=== PATIENT | female | born 1985 | race African-American/Black ===

== ENCOUNTER 2022-03-14 08:15 | Emergency (ER) | payer MEDICAID, SELFPAY ==
--- NOTE | ~2022-03-14 | US_ITS ---
US breast RT complete DATE: 03/14/2022 10:05 INDICATION: Severe nipple pain TECHNIQUE: Real-time imaging of the right breast, including all 4 quadrants and subareolar area COMPARISON: None FINDINGS: There is an irregular up to 7.7 mm AP dimension 2 cm with complicated cystic lesion in the subareolar area with through transmission and posterior enhancement. There is prominent vascularity s urrounding this area. The findings suggest abscess. Less likely considerations include hematoma or ma lignant lesion. Approximately 9 and 11 mm lymph nodes are identified in the axillary area, with uniform echogenicity and thickness of the cortices. IMPRESSION: Irregular approximately 7.7 x 20 mm complicated subareolar fluid collection with through transmission and prominent surrounding vascularity, most suggestive of subareolar abscess Reviewed, dictated and finalized at [facility]. Reviewed, dictated and finalized at [facility]. IMPRESSION: Irregular approximately 7.7 x 20 mm complicated subareolar fluid co llection with through transmission and prominent surrounding vascularity, most suggestive of subareolar abscess
[2022-03-14 08:25] VITALS: BP 122/82; PULSE 81; RESP 18; TEMP 36.7; O2SAT 98
--- NOTE | 2022-03-14 09:20 | ED.GENADULT ---
HPI - General Adult General Chief complaint: Unspecified <MAYANK Red Last Filed: 03/14/22 10:44> Stated complaint: R nipple pain/swelling <MAYANK Red Last Filed: 03/14/22 10:44> Time Seen by Provider: 03/14/22 09:09 <MAYANK Red Last Filed: 03/14/22 10:44> Source: patient <MAYANK Red Last Filed: 03/14/22 10:44> Mode of arrival: ambulatory <MAYANK Red Last Filed: 03/14/22 10:44> Limitations: no limitations <MAYANK Red Last Filed: 03/14/22 10:44> History of Present Illness HPI narrative: This is a 36-year-old female that presents to the emergency department for right breast pain noted over the last couple of days. Reports she noted a mass under the nipple about a week ago. Reports over the last couple days she has had pain in the nipple. She has not been taking anything for pain as she has many allergies. Denies fever, erythema, or nipple discharge. <MAYANK Red Last Filed: 03/14/22 10:44> Related Data Home medications: Home Medications Medication Instructions Recorded Confirmed amitriptyline 12.5 mg PO HS 03/14/22 03/14/22 <MAYANK Red Last Filed: 03/14/22 10:44> Allergies/adverse reactions: Allergies Allergy/AdvReac Type Severity Reaction Status Date / Time NSAIDS (Non-Steroidal Allergy Severe Siezure Verified 03/14/22 11:38 Anti-Inflamma acetaminophen Allergy Unknown Verified 03/14/22 11:38 hydroxyzine Allergy Unknown Verified 03/14/22 11:38 ANTIHISTAMINES Allergy Severe Siezure Uncoded 12/30/15 16:23 altaryl Allergy Unknown Uncoded 03/14/22 08:30 cetrizine Allergy Unknown Uncoded 03/14/22 08:30 diphedryl Allergy Unknown Uncoded 03/14/22 08:30 <MAYANK Red Last Filed: 03/14/22 10:44> Review of Systems Review of Systems: CONSTITUTIONAL: Denies fever BREAST: Reports lump. Denies nipple discharge <Maggie Ray PA-C - Last Filed: 03/14/22 10:44> All systems reviewed & are unremarkable except as noted in HPI and below <Maggie Ray PA-C - Last Filed: 03/14/22 10:44> PMFSH Past Medical History Medical History: Medical History History of arqkosz-2-nklapcnlxkp deficiency (G6PD) History of lupus <Maggie Ray PA-C - Last Filed: 03/14/22 10:44> Social History Social History: Social History Smoking status: Never smoker <Maggie Ray PA-C - Last Filed: 03/14/22 10:44> Exam Narrative: GENERAL: Well-appearing, well-nourished, and in no acute distress. HEAD: Normocephalic, atraumatic. EYES: EOMI. EXTREMITIES: Normal range of motion. No edema. SKIN: Warm, dry, no rash. NEURO: No focal deficits. Alert and oriented x3. PSYCH: Normal mood and affect BREAST: Some nipple distortion noted on the right. Small mass present under the right nipple that is tender to palpation. No erythema or warmth <Maggie Ray PA-C - Last Filed: 03/14/22 10:44> Course SOLDER TECHNICIAN/PA Physician Supervision For this patient encounter, I reviewed the SOLDER TECHNICIAN or PA documentation, treatment plan, and medical decision making <Jonathan Barcenas MD - Last Filed: 03/14/22 13:49> Vital Signs Vital signs: Vital Signs Temperature 98.1 F 03/14/22 08:25 Pulse Rate 81 03/14/22 08:25 Respiratory Rate 18 03/14/22 08:25 Blood Pressure 122/82 03/14/22 08:25 Pulse Oximetry 98 03/14/22 08:25 Temperature 98.1 F 03/14/22 08:25 Pulse Rate 71 03/14/22 10:47 Respiratory Rate 15 03/14/22 10:47 Blood Pressure 127/84 03/14/22 10:47 Pulse Oximetry 99 03/14/22 10:47 <Maggie Ray PA-C - Last Filed: 03/14/22 10:44> Vital Signs Temperature 98.1 F 03/14/22 08:25 Pulse Rate 81 03/14/22 08:25 Respiratory Rate 18 03/14/22 08:25 Blood Pressure 122/82 03/14/22 08:25 Pulse Oximetr
[2022-03-14] MEDS: traMADol HCL (*CRX) 50 MG TABLET PO (09:31)
[2022-03-14] MEDS: ONDANSETRON HCL ODT 4 MG TABLET PO (10:42)
[2022-03-14 10:47] VITALS: BP 127/84; PULSE 71; RESP 15; O2SAT 99
== END 2022-03-14 10:49 | disposition home or self-care (01) ==
PROVIDERS: Emergency Provider Emergency Medicine; PCP Internal Medicine
DX: N61.1 Abscess of the breast and nipple (principal); D75.A Glucose-6-phosphate dehydrogenase (G6PD) deficiency without anemia
CPT/HCPCS: 76641; 81025; 99284; A9270

== ENCOUNTER 2022-03-15 18:04 | Emergency (ER) | payer MEDICAID, SELFPAY ==
[2022-03-15 18:10] VITALS: BP 155/99; PULSE 77; RESP 16; TEMP 36.8; O2SAT 100
--- NOTE | 2022-03-15 18:25 | ED.GENADULT ---
HPI - General Adult General Chief complaint: Unspecified Stated complaint: lupus flair Time Seen by Provider: 03/15/22 18:15 Source: patient History of Present Illness HPI narrative: Patient presents with diffuse body aches. She was seen yesterday in the ER and and plastics. She was diagnosed with a breast abscess started on Bactrim after taking her second dose of Bactrim she reports diffuse pain related she has been in her hip chest pain or abdomen she has pain in her head. She has her symptoms are very severe everything makes them worse. She would like her symptoms are related to her recent antibiotics and are causing a lupus flare. No nausea vomiting or diarrhea Related Data Home Medications Medication Instructions Recorded Confirmed amitriptyline 12.5 mg PO HS 03/14/22 03/14/22 Allergies Allergy/AdvReac Type Severity Reaction Status Date / Time NSAIDS (Non-Steroidal Allergy Severe Siezure Verified 03/15/22 18:14 Anti-Inflamma acetaminophen Allergy Unknown Verified 03/15/22 18:14 hydroxyzine Allergy Unknown Verified 03/15/22 18:14 Sulfa (Sulfonamide AdvReac Other Verified 03/15/22 18:14 Antibiotics) ANTIHISTAMINES Allergy Severe Siezure Uncoded 03/15/22 18:14 altaryl Allergy Unknown Uncoded 03/15/22 18:14 cetrizine Allergy Unknown Uncoded 03/15/22 18:14 diphedryl Allergy Unknown Uncoded 03/15/22 18:14 Review of Systems Review of Systems: CONSTITUTIONAL: Denies fever, chills, or sweats. EYES: Denies visual changes, redness, or discharge. ENT: Denies rhinorrhea, congestion, sore throat, or otalgia. CARDIOVASCULAR: Denies chest pain, palpitations, or edema. RESPIRATORY: Denies cough or dyspnea. GASTROINTESTINAL: Reports abdominal pain GENITOURINARY: Denies dysuria or hematuria. SKIN: Denies rash or itching. MUSCULOSKELETAL: Reports diffuse myalgias and joint pain NEUROLOGIC: Denies numbness, dizziness, or weakness. PSYCHIATRIC: Denies anxiety or depression. All systems reviewed & are unremarkable except as noted in HPI and below PMFSH Past Medical History Medical History History of bzswgde-9-jeecqjucnjl deficiency (G6PD) History of lupus Social History Social History Smoking status: Never smoker Exam Narrative: GENERAL: Well-appearing, well-nourished, and in mild acute distress due to pain HEAD: Normocephalic, atraumatic. EYES: PERRLA and EOMI. ENT: Nares clear, no rhinorrhea or epistaxis. Mucous membranes moist. NECK: Supple. No masses. No JVD CHEST: Clear to auscultation. No respiratory distress. No wheezes rales or rhonchi HEART: Regular rate and rhythm. No murmur heard. Normal peripheral pulses. ABDOMEN: Soft, nontender, nondistended, normal active bowel sounds. EXTREMITIES: Normal range of motion. No edema. SKIN: Warm, dry, no rash. NEURO: No focal deficits. Alert and oriented x3. PSYCH: Normal mood and affect. Course Reevaluation(s) Reevaluation #1: Patient reports feeling improved results and plan reviewed with patient. Patient is comfortable outpatient plan. Case cussed with Dr. Caldwell who is comfortable having the patient call in the morning she still feeling unwell. We will set up the patient's antibiotics. Patient is tolerated amoxicillin in the past. Date: 03/15/22 Time: 19:26 Vital Signs Vital signs: Vital Signs Temperature 36.8 C 03/15/22 18:10 Pulse Rate 77 03/15/22 18:10 Respiratory Rate 16 03/15/22 18:10 Blood Pressure 155/99 H 03/15/22 18:10 Pulse Oximetry 100 03/15/22 18:10 Temperature 36.9 C 03/15/22 19:35 Pulse Rate 88 03/15/22 19:35 Respiratory Rate 14 03/15/22 19:35 Blood Pressure 124/74 03/15/22 19:35 Pulse Oximetry 97 03/15/22 19:35 Medical Decision Making MDM Narrative Medical decision making narrative: H&P as above, vss, pt looks clinically well, exam reassuring, labs clinically unremarkable, laney
[2022-03-15] MEDS: SODIUM CHLORIDE 0.9% IV 1,000 ML 999 ML IV CONT (18:35)
[2022-03-15] MEDS: MORPHINE SULFATE (*CRX) 4 MG/ML INJ IV PUSH (18:35)
[2022-03-15 18:39] LABS: Basophils Absolute Auto 0.1 K/mm3 (0.0-0.1); Basophils Percent Auto 0.3 % (0.2-1.2); Eosinophils Absolute Auto 0.1 K/mm3 (0-0.3); Eosinophils Percent Auto 0.6 % (0-4.4); Hematocrit 42.8 % (37.0-47.0); Immature Granulocyte Absolute 0.05 K/mm3 (0.00-0.031); Immature Granulocyte Percent A 0.3 % (0-0.5); Lymphocytes Absolute Auto 3.15 K/mm3 (0.9-3.2); Lymphocytes Percent Auto 21.4 % (18.3-44.2); Mean Corpuscular HGB Conc 32.7 g/dl (32-36); Mean Corpuscular Hemoglobin 32.4 pg (26-34); Mean Corpuscular Volume 99.1 fl (80-100); Mean Platelet Volume 12.6 fl (7.4-10.4); Monocytes Absolute Auto 0.9 K/mm3 (0.1-0.6); Monocytes Percent Auto 6.3 % (2.6-8.5); Neutrophils Absolute Auto 10.4 K/mm3 (1.3-6.7); Neutrophils Percent Auto 71.1 % (45.5-73.1); Platelet Count Result 166 k/mm3 (150-375); Red Blood Count 4.32 M/mm3 (4.2-5.4); Red Cell Distribution Width 11.7 % (11.5-14.5); White Blood Count 14.7 K/mm3 (4.5-10.0)
[2022-03-15] MEDS: PROCHLORPERAZINE EDISYLATE 10 MG/2 ML VIAL IV PUSH (18:44)
[2022-03-15 18:51] LABS: Alanine Aminotransferase 29 U/L (4-35); Albumin Level 4.6 g/dL (3.5-5.1); Alkaline Phosphatase 84 U/L (38-126); Anion Gap 6 mmol/L (8-16); Aspartate Amino Transferase 29 U/L (14-36); Bilirubin,Total 0.5 mg/dL (0.2-1.3); Blood Urea Nitrogen 10 mg/dL (7-17); Calcium 9.3 mg/dL (8.4-10.2); Carbon Dioxide 24 mmol/L (22-30); Chloride 107 mmol/L (98-107); Estimated CRCL calculation 70 ml/min; Estimated Glomerular Filt Rate > 60; Glucose 120 mg/dL (65-110); Lipase 41 U/L (23-300); Sodium 137 mmol/L (137-145)
[2022-03-15 18:58] LABS: Appearance Urine Clear (Clear); Bilirubin Urine 1+ (Negative); Blood Urine 1+ (Negative); Color Urine Yellow (Yellow); Glucose Urine UA Negative (Negative); Ketones Urine Trace mg/dL (Negative); Leukocyte Esterase Ur Negative LEU/UL (Negative); Nitrate Urine Negative (Negative); Protein Urine Negative (Negative); Specific Grav Ur 1.025 (1.001-1.035)
[2022-03-15 19:05] LABS: Add Urine Microscopic? YES; Mucus Urine Rare /lpf; Squamous Epithelial Cell Urine Many /hpf (Few)
[2022-03-15 19:35] VITALS: BP 124/74; PULSE 88; RESP 14; TEMP 36.9; O2SAT 97
== END 2022-03-15 19:35 | disposition home or self-care (01) ==
PROVIDERS: Emergency Provider Emergency Medicine; PCP Internal Medicine
DX: M25.559 Pain in unspecified hip (principal); R07.9 Chest pain, unspecified; M79.10 Myalgia, unspecified site; R10.9 Unspecified abdominal pain; T36.8X5A Adverse effect of other systemic antibiotics, initial encounter; N61.1 Abscess of the breast and nipple; D75.A Glucose-6-phosphate dehydrogenase (G6PD) deficiency without anemia
CPT/HCPCS: 36415; 80053; 81001; 81025; 83690; 85025; 96374; 96375; 99284; J0780; J2270; J7030

== ENCOUNTER 2022-06-15 03:41 | Emergency (ER) | payer BC, SELFPAY ==
[2022-06-15 03:44] VITALS: BP 128/74; PULSE 90; RESP 16; TEMP 36.3; O2SAT 99
--- NOTE | 2022-06-15 03:44 | ECG_ITS ---
Measurements Intervals [place] Rate: 95 P: 21 WV: 163 QRS: 11 QRSD: 93 T: -14 QT: 343 QTc: 432 Interpretive Statements SINUS RHYTHM POSSIBLE RIGHT VENTRICULAR CONDUCTION DELAY LOW-VOLTAGE QRS IN PRECORDIAL LEADS NONSPECIFIC T-WAVE ABNORMALITY BORDERLINE ECG NO PREVIOUS ECG AVAILABLE FOR COMPARISON Electronically Signed On 06-15-2022 12:37:23 CDT by Kev Sharma M.D.
[2022-06-15 04:10] LABS: Basophils Absolute Auto 0.1 K/mm3 (0.0-0.1); Basophils Percent Auto 0.4 % (0.2-1.2); Eosinophils Absolute Auto 0.2 K/mm3 (0-0.3); Eosinophils Percent Auto 1.5 % (0-4.4); Hematocrit 37.9 % (37.0-47.0); Hemoglobin 12.5 g/dL (12.0-15.0); Immature Granulocyte Absolute 0.05 K/mm3 (0.00-0.031); Immature Granulocyte Percent A 0.4 % (0-0.5); Lymphocytes Absolute Auto 5.36 K/mm3 (0.9-3.2); Lymphocytes Percent Auto 37.6 % (18.3-44.2); Mean Corpuscular Hemoglobin 31.3 pg (26-34); Mean Platelet Volume 11.8 fl (7.4-10.4); Monocytes Percent Auto 7.2 % (2.6-8.5); Neutrophils Absolute Auto 7.6 K/mm3 (1.3-6.7); Neutrophils Percent Auto 52.9 % (45.5-73.1); Platelet Count Result 173 k/mm3 (150-375); Red Blood Count 3.99 M/mm3 (4.2-5.4); Red Cell Distribution Width 11.9 % (11.5-14.5); White Blood Count 14.3 K/mm3 (4.5-10.0)
[2022-06-15 04:20] LABS: Alanine Aminotransferase 21 U/L (6-35); Albumin Level 4.3 g/dL (3.5-5.1); Alkaline Phosphatase 79 U/L (38-126); Anion Gap 11 mmol/L (8-16); Aspartate Amino Transferase 23 U/L (14-36); Bilirubin,Total 0.8 mg/dL (0.2-1.3); Blood Urea Nitrogen 8 mg/dL (7-17); Calcium 9.1 mg/dL (8.4-10.2); Carbon Dioxide 19 mmol/L (22-30); Chloride 104 mmol/L (98-107); Estimated CRCL calculation 89 ml/min; Estimated Glomerular Filt Rate > 60; Glucose 128 mg/dL (65-110); Potassium 3.2 mmol/L (3.4-5.0); Sodium 134 mmol/L (137-145)
[2022-06-15 04:53] VITALS: BP 119/69; PULSE 75
[2022-06-15 04:56] VITALS: BP 120/86; PULSE 62
[2022-06-15 04:57] VITALS: BP 117/86; PULSE 72
[2022-06-15] MEDS: SODIUM CHLORIDE 0.9% IV 1,000 ML 999 ML IV CONT (05:21)
[2022-06-15 05:27] LABS: Appearance Urine Clear (Clear); Bilirubin Urine 1+ (Negative); Blood Urine Negative (Negative); Color Urine Yellow (Yellow); Glucose Urine UA Negative (Negative); Ketones Urine 1+ mg/dL (Negative); Leukocyte Esterase Ur Negative LEU/UL (Negative); Nitrate Urine Negative (Negative); Protein Urine Trace mg/dL (Negative); Specific Grav Ur >= 1.030 (1.001-1.035)
[2022-06-15 05:36] LABS: Mucus Urine Moderate /lpf; RBC Urine 0-2 /hpf (0-2); Squamous Epithelial Cell Urine Few /hpf (Few); WBC Urine 0-3 /hpf
[2022-06-15 06:00] LABS: Add Urine Microscopic? YES
--- NOTE | 2022-06-15 07:07 | ED.GENADULT ---
HPI - General Adult General Chief complaint: Syncope Stated complaint: SYNCOPE Time Seen by Provider: 06/15/22 04:27 History of Present Illness HPI narrative: Patient is a 36-year-old female who presents ER after having a syncopal episode. She was in the bathroom speaking with her when she got hot and flushed and her vision blurred and she passed out. She struck her head on the ground. Loss consciousness was only brief according to . Patient reports she could be . Reports she has had poor appetite recently. She reports she vomits daily for the last 3 weeks. LMP 4 weeks ago. No fevers or chills or sweats. No chest pain or chest pressure. She felt no racing the heart. No urinary frequency urgency or dysuria. Related Data Home Medications Medication Instructions Recorded Confirmed amitriptyline 25 mg tablet 12.5 mg PO HS 03/14/22 03/14/22 Allergies Allergy/AdvReac Type Severity Reaction Status Date / Time NSAIDS (Non-Steroidal Allergy Severe Siezure Verified 03/15/22 18:14 Anti-Inflamma acetaminophen Allergy Unknown Verified 03/15/22 18:14 hydroxyzine Allergy Unknown Verified 03/15/22 18:14 Sulfa (Sulfonamide AdvReac Other Verified 03/15/22 18:14 Antibiotics) ANTIHISTAMINES Allergy Severe Siezure Uncoded 03/15/22 18:14 altaryl Allergy Unknown Uncoded 03/15/22 18:14 cetrizine Allergy Unknown Uncoded 03/15/22 18:14 diphedryl Allergy Unknown Uncoded 03/15/22 18:14 Review of Systems Review of Systems: All systems reviewed & are unremarkable except as noted in HPI and below Constitutional: Constitutional: Denies chills and Denies fever(s) ENT: Denies nasal congestion and Denies sore throat Cardiovascular: Cardiovascular: Denies chest pain, Denies rapid heart rate and Denies radiating jaw, neck or arm pain Respiratory: Respiratory: Denies cough and Denies dyspnea Gastrointestinal: Gastrointestinal: Denies abdominal pain, Denies nausea and Denies vomiting Neurologic: Reports syncope, Denies headache(s), Denies focal weakness and Denies numbness PMFSH Past Medical History Medical History (Updated 06/15/22 @ 07:13 by Yann Mayen MD) Ectopic History of rkoshkx-6-sfnsrvtwgoc deficiency (G6PD) History of lupus Surgical History Surgical History (Updated 06/15/22 @ 07:10 by Yann Mayen MD) H/O pelvic surgery Ectopic removal Social History Social History Smoking status: Never smoker Exam Narrative: GENERAL: Well-appearing, well-nourished, and in no acute distress. HEAD: Normocephalic, atraumatic. EYES: PERRL and EOMI. CHEST: Clear to auscultation. No respiratory distress. HEART: Regular rate and rhythm. Normal peripheral pulses. ABDOMEN: Soft, nontender, nondistended. EXTREMITIES: Normal range of motion. No edema. SKIN: Warm, dry, no rash. NEURO: Alert and oriented x3. PSYCH: Normal mood and affect. Course Course Emergency Course: Patient resting comfortably. Hydrated. Given some pain medication for facial discomfort from striking her head. Patient given reassurance. Discharge home. Vital Signs Vital signs: Vital Signs Temperature 97.4 F L 06/15/22 03:44 Pulse Rate 90 06/15/22 03:44 Respiratory Rate 16 06/15/22 03:44 Blood Pressure 128/74 06/15/22 03:44 Pulse Oximetry 99 06/15/22 03:44 Oxygen Delivery Room Air 06/15/22 03:44 Temperature 97.4 F L 06/15/22 03:44 Pulse Rate 72 06/15/22 04:57 Respiratory Rate 16 06/15/22 03:44 Blood Pressure 117/86 06/15/22 04:57 Pulse Oximetry 99 06/15/22 03:44 Oxygen Delivery Room Air 06/15/22 03:44 Medical Decision Making Vital Signs Vital Signs: Vital Signs Temperature 97.4 F L 06/15/22 03:44 Pulse Rate 90 06/15/22 03:44 Respiratory Rate 16 06/15/22 03:44 Blood Pressure 128/74 06/15/22 03:44 Pulse Oximetry 99 06/15/22 03:44 Oxygen Delivery Room Air
[2022-06-15 07:25] VITALS: BP 108/64; PULSE 78; RESP 18; O2SAT 99
== END 2022-06-15 07:27 | disposition home or self-care (01) ==
PROVIDERS: Emergency Provider Emergency Medicine; PCP Internal Medicine
DX: R55 Syncope and collapse (principal)
CPT/HCPCS: 36415; 80053; 81001; 81025; 85025; 93005; 99284; J7030

== ENCOUNTER 2022-10-10 12:34 | Emergency (ER) | payer BC, SELFPAY ==
--- NOTE | 2022-10-10 12:42 | PC.NURSE ---
PT DECIDED AGAINST STAYING D/T WAIT TIME
== END 2022-10-10 12:56 | disposition left against medical advice (07) ==
LOC: ANHED 12:53
PROVIDERS: PCP Internal Medicine
DX: Z53.21 Procedure and treatment not carried out due to patient leaving prior to being seen by health care provider (principal)
CPT/HCPCS: 99199

== ENCOUNTER 2024-03-08 06:59 | Emergency (ER) | payer BC, SELFPAY ==
--- NOTE | ~2024-03-08 | CT_ITS ---
EXAMINATION: CT abdomen pelvis w con DATE: 03/08/2024 09:11 INDICATION: Possible pyelonephritis. History of bowel infection. TECHNIQUE: Computed tomography (CT) of the abdomen and pelvis was performed with 100 cc Omnipaque 350 intravenous contrast. The dose-length product was 248.02 mGy-cm. Automated exposure control and iter ative reconstruction technique were employed. COMPARISON: CT dated 09/21/2017. FINDINGS: Lung bases are unremarkable. Heart size normal. No significant pleural or pericardial effus ion. The liver, spleen, pancreas, adrenal glands and kidneys are unremarkable. Gallbladder is present . No free air or free fluid. No significant vascular abnormality. No abnormal pelvic masses or fluid collections. 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 No acute osseous abnormality. IMPRESSION: 1. No acute abdominal abnormality. Reviewed, dictated and finalized at [facility].
[2024-03-08 07:19] VITALS: BP 105/87; PULSE 74; RESP 19; TEMP 36.6; O2SAT 98
[2024-03-08 07:36] LABS: Basophils Percent Auto 0.3 % (0.2-1.2); Eosinophils Percent Auto 0.3 % (0-4.4); Hematocrit 43.3 % (37.0-47.0); Hemoglobin 13.8 g/dL (12.0-15.0); Immature Granulocyte Absolute 0.03 K/mm3 (0.00-0.031); Immature Granulocyte Percent A 0.2 % (0-0.5); Lymphocytes Absolute Auto 2.25 K/mm3 (0.9-3.2); Lymphocytes Percent Auto 15.5 % (18.3-44.2); Mean Corpuscular HGB Conc 31.9 g/dl (32-36); Mean Corpuscular Hemoglobin 30.7 pg (26-34); Mean Corpuscular Volume 96.4 fl (80-100); Mean Platelet Volume 12.1 fl (7.4-10.4); Monocytes Absolute Auto 0.7 K/mm3 (0.1-0.6); Monocytes Percent Auto 4.6 % (2.6-8.5); Neutrophils Absolute Auto 11.5 K/mm3 (1.3-6.7); Neutrophils Percent Auto 79.1 % (45.5-73.1); Platelet Count Result 187 k/mm3 (150-375); Red Blood Count 4.49 M/mm3 (4.2-5.4); Red Cell Distribution Width 12.5 % (11.5-14.5); White Blood Count 14.6 K/mm3 (4.5-10.0)
[2024-03-08] MEDS: ONDANSETRON INJ 4 MG/2 ML VIAL IV PUSH (07:38)
[2024-03-08] MEDS: SODIUM CHLORIDE 0.9% IV 1,000 ML 999 ML IV CONT (07:38)
[2024-03-08 07:48] LABS: Alanine Aminotransferase 22 U/L (6-35); Albumin Level 4.9 g/dL (3.5-5.1); Alkaline Phosphatase 74 U/L (38-126); Anion Gap 7 mmol/L (4-12); Aspartate Amino Transferase 21 U/L (14-36); Bilirubin,Total 0.9 mg/dL (0.2-1.3); Blood Urea Nitrogen 7 mg/dL (7-17); Calcium 9.7 mg/dL (8.4-10.2); Carbon Dioxide 24 mmol/L (22-30); Chloride 108 mmol/L (98-107); Estimated CRCL calculation 87 ml/min; Estimated Glomerular Filt Rate > 60; Glucose 137 mg/dL (65-110); Lipase 30 U/L (23-300); Potassium 3.5 mmol/L (3.4-5.0); Sodium 139 mmol/L (137-145)
[2024-03-08 07:48] LABS: Lactic Acid Reflex 1.5 mmol/L (0.7-2.0)
[2024-03-08 07:57] LABS: Appearance Urine Cloudy (Clear); Bacteria Urine 3+ /hpf; Bilirubin Urine Negative (Negative); Blood Urine 2+ (Negative); Color Urine Yellow (Yellow); Glucose Urine UA Negative (Negative); Ketones Urine Trace mg/dL (Negative); Leukocyte Esterase Ur 1+ LEU/UL (Negative); Mucus Urine Present /lpf; Nitrate Urine Negative (Negative); Protein Urine Negative (Negative); Specific Grav Ur 1.023 (1.001-1.035); Squamous Epithelial Cell Urine Many /hpf (Few); WBC Urine 0-5 /hpf (0-3); pH Urine 5.5 (5.0-9.0)
[2024-03-08 07:58] LABS: Add Urine Microscopic? YES
--- NOTE | 2024-03-08 08:30 | ED.ABDPAIN ---
HPI - Abdominal Pain General Chief Complaint: Abdominal Pain Stated Complaint: abd pain Time Seen by Provider: 03/08/24 07:32 Source: patient Mode of arrival: ambulatory Limitations: no limitations History of Present Illness HPI narrative: patient presents with acute onset abdominal pain, nausea, and vomiting starting approximately 4:00 a.m. this morning. She has had several episodes of nonbloody but questionably bilious emesis. She is also having bilateral flank pain at the left greater than right and pain in her RLQ and LLQ. she says it is 10/10 in severity. No fever. Denies diarrhea. She has been having dysuria, urgency, and frequency but denies hematuria. She has a history of E coli and salmonella which required 6 months of hospitalization in 2013. her insurance follow up specialist is Dr Broussard. Last colonoscopy 4 years ago. Hx lupus. Near daily marijuana use to help her sleep. Related Data Home Medications Medication Instructions Recorded Confirmed amitriptyline 25 mg tablet 12.5 mg PO HS 03/14/22 03/14/22 Allergies Allergy/AdvReac Type Severity Reaction Status Date / Time NSAIDS (Non-Steroidal Allergy Severe Siezure Verified 03/08/24 07:22 Anti-Inflamma cetirizine Allergy Unknown Unknown Verified 03/08/24 07:37 acetaminophen Allergy Unknown Verified 03/08/24 07:22 hydroxyzine Allergy Unknown Verified 03/08/24 07:22 Sulfa (Sulfonamide AdvReac Other Verified 03/08/24 07:22 Antibiotics) ANTIHISTAMINES Allergy Severe Siezure Uncoded 03/08/24 07:22 altaryl Allergy Unknown Uncoded 03/08/24 07:22 diphedryl Allergy Unknown Uncoded 03/08/24 07:22 [facility] Past Medical History Medical History Ectopic History of E. coli septicemia History of xuxotdw-0-hoxurfddkqj deficiency (G6PD) History of lupus History of Salmonella gastroenteritis Surgical History Surgical History H/O pelvic surgery Ectopic removal History of colonoscopy 2019, Dr Broussard (sp?), insurance follow up specialist Family History Family History Other Colon cancer Social History Social History (Updated 03/08/24 @ 08:51 by Demi Morillo MD) Social History: has a child Smoking status: Never smoker Substance use: current Substance use type: marijuana Other substance usage details: daily Exam Narrative: GENERAL: well-nourished, in acute distress. HEAD: Normocephalic, atraumatic. EYES: Non injected, non icteric ENT: Nares clear, no rhinorrhea or epistaxis. NECK: Supple. CHEST: speaking complete sentences. No respiratory distress. HEART: Regular rate and rhythm. ABDOMEN: Soft, nondistended. Tenderness palpation throughout though particularly in right lower quadrant and left lower quadrant. No rigidity. : CVA tenderness L > R EXTREMITIES: Normal range of motion. No edema. SKIN: Warm, dry, no rash. NEURO: No focal deficits. Alert and oriented x3. Course Vital Signs Vital signs: Vital Signs Temperature 97.8 F 03/08/24 07:19 Pulse Rate 74 03/08/24 07:19 Respiratory Rate 19 03/08/24 07:19 Blood Pressure 105/87 03/08/24 07:19 Pulse Oximetry 98 03/08/24 07:19 Oxygen Delivery Room Air 03/08/24 07:19 Temperature 97.8 F 03/08/24 07:19 Pulse Rate 79 03/08/24 08:43 Respiratory Rate 14 03/08/24 08:43 Blood Pressure 121/67 03/08/24 08:43 Pulse Oximetry 100 03/08/24 08:43 Oxygen Delivery Room Air 03/08/24 07:19 MDM - Abdominal Pain MDM Narrative Medical decision making narrative: patient presents with acute onset abdominal pain and nausea and vomiting that awoke her from her sleep. She has a history of lupus as well as a history of E coli and some melena more than a decade ago which involved a prolonged hospitalization and caused lasting GI issues. In the emergency de
[2024-03-08] MEDS: MORPHINE SULFATE (*CRX) 4 MG/ML INJ IV PUSH (08:42)
[2024-03-08] MEDS: PROCHLORPERAZINE EDISYLATE 10 MG/2 ML VIAL IV PUSH (08:42)
[2024-03-08 08:43] VITALS: BP 121/67; PULSE 79; RESP 14; O2SAT 100
[2024-03-08 09:29] LABS: Influenza A QL RT-PCR Negative (Negative); Influenza B QL RT-PCR Negative (Negative); RSV RNA, RT-PCR Negative (Negative); SARS-CoV-2 RNA PCR Negative (Negative)
== END 2024-03-08 09:48 | disposition home or self-care (01) ==
PROVIDERS: Emergency Provider Student in an Organized Health Care Education/Training Program; PCP Internal Medicine
DX: N12 Tubulo-interstitial nephritis, not specified as acute or chronic (principal); D72.829 Elevated white blood cell count, unspecified; R11.2 Nausea with vomiting, unspecified; R10.9 Unspecified abdominal pain; Z20.822 Contact with and (suspected) exposure to COVID-19; M32.9 Systemic lupus erythematosus, unspecified
CPT/HCPCS: 36415; 74177; 80053; 81001; 81025; 83605; 83690; 85025; 87637; 96361; 96365; 96375; 99284; J0696; J0780; J2270; J2405; J7030; Q9967

== ENCOUNTER 2024-03-11 17:48 | Emergency (ER) | payer BC, SELFPAY ==
--- NOTE | 2024-03-11 18:52 | PC.NURSE ---
Called to triage room, pt not in waiting room
== END 2024-03-11 19:22 | disposition left against medical advice (07) ==
LOC: ANHED 19:08
PROVIDERS: PCP Internal Medicine
DX: Z53.21 Procedure and treatment not carried out due to patient leaving prior to being seen by health care provider (principal)
CPT/HCPCS: 99199

== ENCOUNTER 2024-03-12 04:34 | Emergency (ER) | payer BC, SELFPAY ==
[2024-03-12 04:43] VITALS: BP 139/99; PULSE 67; RESP 18; TEMP 36.3; O2SAT 96
[2024-03-12 05:15] LABS: Basophils Absolute Auto 0.1 K/mm3 (0.0-0.1); Basophils Percent Auto 0.4 % (0.2-1.2); Eosinophils Percent Auto 0.2 % (0-4.4); Hematocrit 40.2 % (37.0-47.0); Hemoglobin 13.2 g/dL (12.0-15.0); Immature Granulocyte Absolute 0.04 K/mm3 (0.00-0.031); Immature Granulocyte Percent A 0.3 % (0-0.5); Lymphocytes Absolute Auto 2.21 K/mm3 (0.9-3.2); Lymphocytes Percent Auto 19.1 % (18.3-44.2); Mean Corpuscular HGB Conc 32.8 g/dl (32-36); Mean Corpuscular Hemoglobin 31.1 pg (26-34); Mean Corpuscular Volume 94.6 fl (80-100); Mean Platelet Volume 12.4 fl (7.4-10.4); Monocytes Absolute Auto 0.7 K/mm3 (0.1-0.6); Monocytes Percent Auto 6.1 % (2.6-8.5); Neutrophils Absolute Auto 8.5 K/mm3 (1.3-6.7); Neutrophils Percent Auto 73.9 % (45.5-73.1); Platelet Count Result 151 k/mm3 (150-375); Red Blood Count 4.25 M/mm3 (4.2-5.4); Red Cell Distribution Width 12.2 % (11.5-14.5); White Blood Count 11.6 K/mm3 (4.5-10.0)
[2024-03-12 05:24] LABS: Alanine Aminotransferase 25 U/L (6-35); Albumin Level 4.7 g/dL (3.5-5.1); Alkaline Phosphatase 65 U/L (38-126); Anion Gap 7 mmol/L (4-12); Aspartate Amino Transferase 33 U/L (14-36); Blood Urea Nitrogen 12 mg/dL (7-17); Calcium 9.4 mg/dL (8.4-10.2); Carbon Dioxide 24 mmol/L (22-30); Chloride 104 mmol/L (98-107); Estimated CRCL calculation 98 ml/min; Estimated Glomerular Filt Rate > 60; Glucose 96 mg/dL (65-110); Lipase 29 U/L (23-300); Potassium 3.5 mmol/L (3.4-5.0); Sodium 135 mmol/L (137-145)
--- NOTE | 2024-03-12 05:42 | ED.GENADULT ---
HPI - General Adult General Chief complaint: Abdominal Pain Stated complaint: kidney infection, N/V Time Seen by Provider: 03/12/24 04:55 History of Present Illness HPI narrative: this is a 38-year-old female presenting ED with chief complaint of a kidney infection. Patient seen here 2 days ago for identical symptoms. She is having bilateral back pain. Workup at that time was unremarkable including urine and CT scan. Patient was discharged and went to [facility] where she was given dicyclomine. At this time the patient says that the pain is gotten worse. She has run out of her Percocet which she usually takes for pain. She states that ibuprofen gives her seizures and she cannot take Tylenol due to her G6PD deficiency. Patient smokes marijuana daily to deal with her symptoms. Related Data Home Medications Medication Instructions Recorded Confirmed amitriptyline 25 mg tablet 12.5 mg PO HS 03/14/22 03/14/22 Allergies Allergy/AdvReac Type Severity Reaction Status Date / Time NSAIDS (Non-Steroidal Allergy Severe Siezure Verified 03/08/24 07:22 Anti-Inflamma cetirizine Allergy Unknown Unknown Verified 03/08/24 07:37 acetaminophen Allergy Unknown Verified 03/08/24 07:22 hydroxyzine Allergy Unknown Verified 03/08/24 07:22 Sulfa (Sulfonamide AdvReac Other Verified 03/08/24 07:22 Antibiotics) ANTIHISTAMINES Allergy Severe Siezure Uncoded 03/08/24 07:22 altaryl Allergy Unknown Uncoded 03/08/24 07:22 diphedryl Allergy Unknown Uncoded 03/08/24 07:22 [facility] Past Medical History Medical History Ectopic History of E. 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 She is pacing back and forth. strong order marijuana Head: atraumatic. EYES: EOMI, NOSE: Atraumatic NECK: Trachea midline RESPIRATORY: No increased rate of breathing CARDIOVASCULAR: Heart rate of 70, ABDOMINAL: soft, nontender no guarding or rebound. patient reports tenderness in the lower quadrants but I am unable to elicit a grimace and she is distractible MUSCULOSKELETAl: No obvious deformities NEURO: Alert. Moving 4/4 extremities SKIN:: Warm, dry. Normal color PSYCHIATRIC: Normal affect Course Vital Signs Vital signs: Vital Signs Temperature 97.4 F L 03/12/24 04:43 Pulse Rate 67 03/12/24 04:43 Respiratory Rate 18 03/12/24 04:43 Blood Pressure 139/99 H 03/12/24 04:43 Pulse Oximetry 96 03/12/24 04:43 Oxygen Delivery Room Air 03/12/24 04:43 Temperature 97.4 F L 03/12/24 04:43 Pulse Rate 67 03/12/24 04:43 Respiratory Rate 18 03/12/24 04:43 Blood Pressure 139/99 H 03/12/24 04:43 Pulse Oximetry 96 03/12/24 04:43 Oxygen Delivery Room Air 03/12/24 04:43 Medical Decision Making [facility] Narrative Medical decision making narrative: -Course: 38-year-old female with daily marijuana use chronic abdominal pain, in for abdominal pain emotional distress. Given Haldol with complete resolution of her symptoms. Workup negative. Patient discharged. -DDX includes but is not limited to: Cyclic vomiting, uti -Co-morbidities complicating care: daily marijuana use, lupus -External Chart Review: review of previous ER notes fo
[2024-03-12] MEDS: SODIUM CHLORIDE 0.9% IV 1,000 ML 999 ML IV CONT (05:45)
[2024-03-12] MEDS: HALOPERIDOL LACTATE 5 MG/ML VIAL IM (05:45)
[2024-03-12] MEDS: FAMOTIDINE 20 MG/2 ML VIAL IV PUSH (05:45)
[2024-03-12 06:17] LABS: Amphetamine Screen Urine Negative (Negative); Appearance Urine Cloudy (Clear); Bacteria Urine None Seen /hpf; Barbiturate Screen Urine Negative (Negative); Benzodiazepines Screen Urine Negative (Negative); Bilirubin Urine Negative (Negative); Blood Urine Negative (Negative); Budding Yeast Urine Present /hpf; Cannabinoid Screen Urine Positive (Negative); Cocaine Screen Urine Negative (Negative); Color Urine Dark Yellow (Yellow); Glucose Urine UA Negative (Negative); Ketones Urine 1+ mg/dL (Negative); Leukocyte Esterase Ur Negative LEU/UL (Negative); Methadone Screen Urine Negative (Negative); Nitrate Urine Negative (Negative); Non Pathogenic Casts 0-2; Opiate Screen Urine Positive (Negative); Phencyclidine Screen Urine Negative (Negative); Protein Urine Negative (Negative); Specific Grav Ur 1.022 (1.001-1.035); Squamous Epithelial Cell Urine Few /hpf (Few); WBC Urine 0-5 /hpf (0-3); pH Urine 6.5 (5.0-9.0)
[2024-03-12 06:19] LABS: Add Urine Microscopic? YES
== END 2024-03-12 06:43 | disposition home or self-care (01) ==
PROVIDERS: Emergency Provider Emergency Medicine; PCP Internal Medicine
DX: R11.10 Vomiting, unspecified (principal); F12.90 Cannabis use, unspecified, uncomplicated; N15.9 Renal tubulo-interstitial disease, unspecified; D75.A Glucose-6-phosphate dehydrogenase (G6PD) deficiency without anemia; M32.9 Systemic lupus erythematosus, unspecified
CPT/HCPCS: 36415; 80053; 80307; 81001; 81025; 83690; 85025; 96361; 96372; 96374; 99284; J1630; J7030

== ENCOUNTER 2025-03-13 00:40 | Emergency (ER) | payer BC, SELFPAY ==
[2025-03-13 00:41] VITALS: BP 136/95; PULSE 70; RESP 18; TEMP 36.9; O2SAT 96
--- OUTSIDE RECORDS SUMMARY | 2025-03-13 00:41 | XMS_ITS | Encounter Summary ---
Author Organization [facility] Healthcare Address [address] [place] [address] Care Team Providers Care Data Entry Supervisor Name Role Phone Navi Dudley MD Primary Care Provider [phone] Reason for Visit * Reason Comments Abdominal Pain Encounter Details Date Type Department Care Team (Late st Contact Info) Description 03/12/2025 6:56 PM CDT - 03/12/2025 9:51 PM CDT Emergency [facility] Emergency Department [address] [place] [address] Discharge Disposition: Left without being seen Social History Tobacco Use Types Packs/Day Years Used Date Smoking Tobacco: Former Cigarettes 0.1 2 2 008 - 2009 Personal Safety Answer Date Recorded Have you ever been in or are you currently in a harmful physical or emotional relationship or is someone making you feel afraid or unsafe? 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 Gender Identity Not on file Sexual Orientation Not on file documented as of this encounter Last Filed Vital Signs Vital Sign Reading Time Taken Comments Blood Pressure 145/87 03/12/2025 7:02 PM CDT Pulse 77 03/12/2025 7:02 PM CDT Temperature 36.7 C (98.1 F) 03/12/2025 7:02 PM CDT Respiratory Rate 18 03/12/2025 7:02 PM CDT Oxygen Saturation 100% 03/12/2025 7:02 PM CDT Inhaled Oxygen Concentration - - Weight 57.2 kg (126 lb) 03/12/2025 7:02 PM CDT Height 160 cm (5' 3 ) 03/12/2025 7:02 PM CDT Body Mass Index 22.32 03/12/2025 7:02 PM CDT documented in this encounter Medications at Time of Discharge prochlorperazine (COMPAZINE) 10 mg tablet Take 1 tablet (10 mg total) by mouth 2 (two) times a day as needed for nausea or vomiting 10 tablet 03/15/2024 documented as of this encounter Discharge Disposition Disposition Code Departure Means Destination Comment s Left without being seen Pct states pt was called x 3 and registration stated pt left documented in this encounter ED Notes * Dari Burton RN - 03/12/2025 7:01 PM CDT Patient arrives for evaluation of vomiting and generalized abdominal pain that started yesterday. documented in this encounter Plan of Treatment Scheduled Orders Name Type Priority Associated Diagnoses Order Schedule Urinalysis reflex to microscopic and culture Urine Microbiology STAT STAT for 1 Occurrences starting 03/12/2025 until 03/12/2025 POCT hCG, urine Point of Care Testing Routine STAT for 1 Occurrences starting 03/12/2025 until 03/12/2025 documented as of this encounter Procedures Procedure Name Priority Date/Time Associated Diagnosis Comments EGFR STAT 03/12/2025 7:08 PM CDT CBC WITH AUTO DIFFERENTIAL STAT 03/12/2025 7:08 PM CDT MANUAL DIFFERENTIAL STAT 03/12/2025 7 :08 PM CDT LIPASE STAT 03/12/2025 7:08 PM CDT COMPREHENSIVE METABOLIC PANEL STAT 03/12/2025 7:08 PM CDT documented in this encounter Results * (ABNORMAL) Manual Differential (03/12/2025 7:08 PM CDT) Differential Manual Neutrophil abs 8.47(H) 1.50 - 6.50 K/cumm [facility] ([facility]) Lymphocyte abs 1.49 0.80 - 3.30 K/cumm [facility]) Monocyte abs 0.46 0.20 - 0.80 K/cumm [facility] ([facility]) Eosinophil abs 1.03(H) 0.00 - 0.50 K/cumm [facility]) Neutrophil pct 74.0 % [facility] ([facility]) Comment: Interpretive Data Percent cell count reference ranges are not reported, since discordance with absolute values may lead to misinterpretation of CBC data. Current Interpretive Data was last revised on 2018. Lymphocyte pct 12.0 % [facility] ([facility]) Comment: Interpretive Data Percent cell count reference ranges are not reported, since discordance with absolute values may lead to misinterpretation of CBC data. Current Interpretive Data was last revised on 2018. Monocyte pct 4.0 % [facility] ([facility]) Comment: Interpretive Data Percent cell count reference ranges are not reported, since discordance with absolute values may lead to misinterpretation of CBC data. Current Interpretive Data was last revised on 2018. Eosinophil pct 9.0 % [facility] ([facility]) Comment: Interpretive Data Percent cell count reference ranges are not reported, since discordance with absolute values may lead to misinterpretation of CBC data. Current Interpretive Data was last revised on 2018. Variant lymph pct 1.0(H) 0.0 - 0.0 % [facility]) RBC morphology Consistent with RBC Indicies [facility] ([facility]) Platelet estimate Automated Count Confirmed [facility]) Blood 03/12/2025 7:08 PM CDT 03/12/2025 7:13 PM CDT us Compa Morrissey MD LAB BLOOD ORDERABLES Final Res ult [facility] ([facility]) 1 [facility] Department [place] [address] * eGFR (03/12/2025 7:08 PM CDT) eGFR >90 >=60 mL/min/1. 73 m2 Comment: Interpretive Data Reference Interval Normal >/= 90 mL/min/1.73m2 Mildly decreased* 60 - 89 mL/min/1.73m2 Mildly to moderately decreased 45 - 59 mL/min/1.73m2 Moderately to severely decreased 30 - 44 mL/min/1.73m2 Severely decreased 15 - 29 mL/min/1.73m2 Kidney Failure < 15 mL/min/1.73m2 *Relative to young adult level Estimated glomerular filtration rate is determined by the 2020 CKD-EPI equation recommended by the National Kidney Foundation (A Unifying Approach to GFR Estimation: Recommendations of the NKF-ASK Task Force on Reassessing the Inclusion of Race in Diagnosing Kidney Disease, JASN 2020). The CKD-EPI equation should not be used for patients with unstable renal function and has not been validated in children and those over 70. Current interpretive data was last reviewed 2021. Blood 03/12/2025 7:08 PM CDT 03/12/2025 7:13 PM CDT Compa Morrissey MD LAB BLOOD ORDERABLES Final Res ult [facility] ([place]) [address] [place] [address] [place] [address] * Lipase (03/12/2025 7:08 PM CDT) Lipase 17 10 - 99 Units/L Blood Venous blood specimen / Unknown 03/12/2025 7:08 PM CDT 03/12/2025 7:13 PM CDT Compa Morrissey MD LAB BLOOD ORDERABLES Final Res ult [facility] ([place]) 1 [facility] [place] [address] * (ABNORMAL) Comprehensive metabolic panel (03/12/2025 7:08 PM CDT) Sodium 135 135 - 145 mmol/L Potassium, pl 3.7 3.3 - 4.9 mmol/L [facility]) Chloride 99 97 - 110 mmol/L [facility]) CO2 21(L) 22 - 32 mmol/L [facility]) Anion gap 15 2 - 15 mmol/L [facility]) BUN 12 6 - 25 mg/dL [facility]) Creatinine 0.55(L) 0.60 - 1.10 mg/dL [facility]) Glucose 108 70 - 199 mg/dL [facility]) Comment: Interpretive Data Fasting glucose >/= 126 mg/dl is diagnostic for diabetes. Fasting is defined as no caloric intake for at least 8 hours. Fasting glucose between 100 mg/dl to 125 mg/dl is diagnostic of prediabetes. In a patient with classic symptoms of hyperglycemia or hyperglycemic crisis, a random glucose >/= 200 mg/dl is diagnostic for diabetes. In the absence of unequivocal hyperglycemia, results should be confirmed by repeat testing. The classification and Diagnosis of Diabetes Diabetes Care 2021; 46: S19-S40. Current interpretive data was last revised 2022. Calcium 9.9 8.5 - 10.3 mg/dL [facility]) Bilirubin, total 0.8 0.1 - 1.2 mg/dL [facility]) Protein, pl 8.1 6.5 - 8.5 g/dL [facility]) Albumin 4.7 3.5 - 5.0 g/dL [facility]) Alk phos 71 40 - 130 Units/L [facility]) ALT 13 7 - 45 Units/L [facility]) AST 14 10 - 45 Units/L [facility]) Blood 03/12/2025 7:08 PM CDT 03/12/2025 7:13 PM CDT us Compa Morrissey MD LAB BLOOD ORDERABLES Final Res ult [facility] ([facility]) 1 [facility] [place] [address] * (ABNORMAL) CBC with auto differential (03/12/2025 7:08 PM CDT) WBC 11.45(H) 3.80 - 9.90 K/cumm Hgb 14.0 11.9 - 15.5 g/dL [facility]) Hct 41.9 35.6 - 45.5 % [facility]) Plt 212 150 - 400 K/cumm [facility]) MPV 11.7 9.1 - 12.3 fL [facility]) RBC 4.55 3.90 - 5.20 M/cumm [facility]) MCV 92.1 81.3 - 96.4 fL [facility]) MCH 30.8 27.1 - 33.3 pg [facility]) MCHC 33.4 32.3 - 35.7 g/dL [facility]) RDW CV 12.1 11.1 - 14.9 % [facility]) RDW SD 41.3 35.7 - 48.1 fL [facility]) NRBC abs 0.00 0.00 - 0.01 K/cumm [facility]) Blood Venous blood specimen / Unknown 03/12/2025 7:08 PM CDT 03/12/2025 7:13 PM CDT us Compa Morrissey MD LAB BLOOD ORDERABLES Final Res ult [facility] ([facility]) 1 [facility] Department [place] [address] documented in this encounter Visit Diagnoses Not on filedocumented in this encounter Orders Nursing Count Last Ordered Date First Orde red Date MISCELLANEOUS NURSING CARE ORDER (SPECIFY) 1 03/12/2025 IV Count Last Ordered Date First Orde red Date SALINE LOCK IV 1 03/12/2025 documented in this encounter Care Teams Data Entry Supervisor Relationship Specialty Start Date End Date Navi Dudley MD [address] [place] [address] PCP - General Internal Medicine 05/02/22 documented as of this encounter
--- OUTSIDE RECORDS SUMMARY | 2025-03-13 00:41 | XMS_ITS | Encounter Summary ---
Author Organization [facility] Healthcare Address [address] [place] [address] Care Team Providers Care Information Technology Officer Name Role Phone Navi Dudley MD Primary Care Provider [phone] Reason for Visit * Reason Onset Date Comments ready to scheduled 02/27/2023 Encounter Details Date Type Department Care Team ([facility] Contact Info) Description 02/27/2023 Telephone [facility] Specialty Services [address] [place] [phone] Miscellaneous, Not In File ready to scheduled Social History Tobacco Use Types Packs/Day Years Used Date Smoking Tobacco: Former Cigarettes 0.1 2 2 008 - 2010 Comments No Sex and Gender Information Value Date Recorded Sex Assigned at Not on file 

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
--- OUTSIDE RECORDS SUMMARY | 2025-03-13 00:42 | XMS_ITS | Clinical Summary ---
Author Organization [facility] Address [address] [place] [address] Care Team Providers Care Solar Manager Name Role Phone Navi Dudley MD Primary Care Provider [phone] Allergies Active Allergy Reactions Criticality Noted Date [...] pylori Nausea and vomiting in adult 10/21/2012 Encounters Date Type Department Care Team Description 03/12/2025 6:56 PM CDT - 03/12/2025 9:51 PM CDT Emergency [facility] Emergency Department [address] [place] [id number] Discharge Disposition: Left without being seen 02/26/2025 Orders Only [facility] Healthcare Occupatiuonal Health [address] [facility] Room [address] (Third Floor) [place] [phone] Lorenzo Marshall MD Pre-employment health screening examination (Primary Dx) from Last 3 Months Immunizations Immunization Administration Dates Next Due Influenza, Quadrivalent, Spl it, Preservative Free, Intramuscular 10/27/2012 Influenza, Trivalent, IM (MDV) 07/23/2024 Influenza, Unspecified 08/17/2014 Pneumococcal Polysaccharide PPV23 11/10/2014 Tdap 10/10/2024,11/10/2014 Surgical History Surgery Date Site/Laterality Comments TUBAL LIGATION DILATION AND CURETTAGE OF UTERUS Medical History Medical History Date Comments Generalized headaches Lupus Social History Tobacco Use Types Packs/Day Years Used Date Smoking Tobacco: Former Cigarettes 0.1 2 2 008 - 2010 Personal Safety Answer Date Recorded Have you ever been in or are you currently in a harmful physical or emotional relationship or is someone making you feel afraid or unsafe? 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 Gender Identity Not on file Sexual Orientation Not on file Obstetrics History Last Filed Vital Signs Vital Sign Reading [...] 03/12/2025 7:02 PM CDT Plan of Treatment Health Maintenance Due Date Last Done Comments Albumin Creatinine Ratio, Urine 1987 Cervical Cancer Screening 1987 Depression Screening 1987 Hemoglobin A1C 1987 Hepatitis C Screening 1987 Dilated Eye Exam 1987 Foot Exam 1987 Lipid Panel 1987 Varicella Vaccines (1 of 2 - 13+ 2-dose series) 2000 Hepatitis B Screening 2005 Regular Well Visit/Exam 18-64 2005 Pneumococcal vaccine <65 (2 of 2 - PCV) 11/10/2015 11/10/2014 eGFR 03/12/2026 03/12/2025, 05/0 07/2024, 03/15/2024, Additional history exists DTaP/Tdap/Td Vaccine (3 - Td or Tdap) 10/10/2034 10/10/2024, 11/10/2014 Influenza Vaccine Completed 07/23/2024, , 10/27/2012 HPV Vaccines Aged Out No longer eligi ble based on patient's age to complete this topic Procedures Procedure Name Priority Date/Time Associated Diagnosis [...] LAB BLOOD ORDERABLES Final Res ult [facility] ([place] 1 [facility] [place] [address] * (ABNORMAL) CBC with auto differential (03/12/2025 7:08 PM CDT) WBC 11.45(H) 3.80 - 9.90 K/cumm Hgb 14.0 11.9 - 15.5 g/dL [facility] ([facility]) Hct 41.9 35.6 - 45.5 [...] MD LAB BLOOD ORDERABLES Final Res ult [facility] ([facility]) 1 [facility] [place] [address] * (ABNORMAL) Manual Differential (03/12/2025 7:08 PM [...] revised on 2018. Monocyte pct 4.0 % [facility] ([facility]) Comment: Interpretive Data Percent cell [...] lymph pct 1.0(H) 0.0 - 0.0 % [facility] ([facility]) RBC morphology Consistent with RBC Indicies [facility] ([facility]) Platelet estimate Automated Count Confirmed [facility] ([facility]) Blood 03/12/2025 7:08 PM CDT 03/12/2025 7:13 PM CDT Compa Morrissey MD LAB BLOOD ORDERABLES Final Res ult [facility] ([place]) 1 [facility] [employer] [employer] [place] [address] * Lipase (03/12/2025 7:08 PM CDT) Lipase 17 10 - 99 Units/L Blood Venous blood specimen / Unknown 03/12/2025 7:08 PM CDT 03/12/2025 7:13 PM CDT Compa Morrissey MD LAB BLOOD ORDERABLES Final Res ult [facility] ([place]) 1 [facility] [place] [place] [address] * (ABNORMAL) Comprehensive metabolic panel (03/12/2025 7:08 [...] Final Res ult [facility] ([facility]) 1 [facility] [place] [address] from Last 3 Months Insurance [facility] [place] [address] [facility] [place] [address] Care Teams Solar Manager Relationship Specialty Start Date End Date Navi Dudley MD [address] [place] [address] PCP - General Internal Medicine 05/02/22
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
[2025-03-13] MEDS: HALOPERIDOL LACTATE 5 MG/ML VIAL 2.5 MG IV PUSH (02:24)
[2025-03-13] MEDS: FAMOTIDINE 20 MG/2 ML VIAL IV PUSH (02:25)
[2025-03-13 02:26] LABS: Basophils Absolute Auto 0.1 K/mm3 (0.0-0.1); Basophils Percent Auto 0.4 % (0.2-1.2); Eosinophils Percent Auto 0.1 % (0-4.4); Hematocrit 41.9 % (37.0-47.0); Hemoglobin 13.6 g/dL (12.0-15.0); Immature Granulocyte Absolute 0.05 K/mm3 (0.00-0.031); Immature Granulocyte Percent A 0.4 % (0-0.5); Lymphocytes Absolute Auto 1.71 K/mm3 (0.9-3.2); Lymphocytes Percent Auto 12.4 % (18.3-44.2); Mean Corpuscular HGB Conc 32.5 g/dl (32-36); Mean Corpuscular Hemoglobin 30.5 pg (26-34); Mean Corpuscular Volume 93.9 fl (80-100); Mean Platelet Volume 11.8 fl (7.4-10.4); Monocytes Absolute Auto 0.8 K/mm3 (0.1-0.6); Monocytes Percent Auto 6.1 % (2.6-8.5); Neutrophils Absolute Auto 11.1 K/mm3 (1.3-6.7); Neutrophils Percent Auto 80.6 % (45.5-73.1); Platelet Count Result 208 k/mm3 (150-375); Red Blood Count 4.46 M/mm3 (4.2-5.4); White Blood Count 13.8 K/mm3 (4.5-10.0)
--- NOTE | 2025-03-13 02:28 | ED_ITS ---
HPI - Abdominal Pain General Chief Complaint: Abdominal Pain Stated Complaint: nausea/vomitting.abd pain Time Seen by Provider: 03/13/25 01:54 History of Present Illness HPI narrative: 39-year-old female with a history of cannabinoid hyperemesis presenting to the emergency department chief complaint of nausea, vomiting and abdominal discomfort. Patient is very tearful in triage. States that she has had left lower quadrant abdominal pain for several days. Endorses still taking marijuana for chronic pain. Denies any fever, chills, back pain, pelvic pain, chest pain, shortness a breath, vaginal bleeding, hematuria, dysuria. Denies any chance of . States that feels similar to last time she was here. On review of the EMR she had a visit to the ER several times for cyclic vomiting/cannabinoid hyperemesis last year around the same time. She states she has been taking Bentyl at home and marijuana without any relief of symptoms. Related Data Home Medications ?Medication ?Instructions ?Recorded ?Confirmed ?Last Taken ?Type amitriptyline 25 mg tablet 12.5 mg PO HS 03/14/22 03/14/22 Unknown History Allergies Allergy/AdvReac Type Severity Reaction Status Date / Time NSAIDS (Non-Steroidal Allergy Severe Siezure Verified 03/08/24 07:22 Anti-Inflamma cetirizine Allergy Unknown Unknown Verified 03/08/24 07:37 acetaminophen Allergy Unknown Verified 03/08/24 07:22 hydroxyzine Allergy Unknown Verified 03/08/24 07:22 Sulfa (Sulfonamide AdvReac Other Verified 03/08/24 07:22 Antibiotics) ANTIHISTAMINES Allergy Severe Siezure Uncoded 03/08/24 07:22 altaryl Allergy Unknown Uncoded 03/08/24 07:22 diphedryl Allergy Unknown Uncoded 03/08/24 07:22 Review of Systems 2 Review of Systems: As reviewed above [facility] Past Medical History Medical History History of Salmonella gastroenteritis History of E. 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 HEAD: [Normocephalic, atraumatic.] EYES: [PERRLA and EOMI.] ENT: Nares clear, no rhinorrhea or epistaxis. Mucous membranes moist. NECK: Supple. CHEST: [Clear to auscultation. No respiratory distress.] HEART: [Regular rate and rhythm]. No murmur heard. [Normal peripheral pulses.] ABDOMEN: [Soft, nondistended], [nontender], [No rigidity or guarding] no signs of peritonitis EXTREMITIES: Normal range of motion. [No edema.] SKIN: Warm, dry, no rash. NEURO: [No focal deficits]. Alert and oriented [x3.] PSYCH: Tearful mood and affect Course Vital Signs Vital signs: Vital Signs Temperature 36.9 C 03/13/25 00:41 Pulse Rate 70 03/13/25 00:41 Respiratory Rate 18 03/13/25 00:41 Blood Pressure 136/95 H 03/13/25 00:41 Pulse Oximetry 96 03/13/25 00:41 Oxygen Delivery Room Air 03/13/25 00:41 Temperature 37.2 C 03/13/25 02:44 Pulse Rate 76 03/13/25 05:54 Respiratory Rate 15 03/13/25 05:54 Blood Pressure 113/75 03/13/25 05:54 Pulse Oximetry 99 03/13/25 05:54 Oxygen Delivery Room Air 03/13/25 00:41 MDM - Abdominal Pain MDM Narrative Medical decision making narrative: 39-year-old female with history of cannabinoid hyperemesis. She presents to the emergency department complaints of nausea, vomiting and abdominal discomfort. States that her Bentyl at home in her marijuana not helping her pain. Last time she was here your ago she had similar complaints and was discharged after unremarkable workup and improvement with Haldol for cannabinoid hyperemesis. Patient is tearful in her affect, has a soft nondistended and nontender abdomen. No signs of peritonitis. Vital signs are all reassuring without tachycardia, fever or hypoxia. Suspicion presently is for potential cyclic vomiting versus cannabinoid hyperemesis versus intra-abdominal process less likely such as appendicitis, diverticulitis, pancreatitis. Will evaluate with laboratory studies including CBC, CMP, lipase to see if there is any need for imaging studies at this time. She was given a dose of Haldol and Pepcid here as well as a fluid bolus. Urinalysis and urine drug screen with test ordered. Patient re-evaluated after Haldol and was resting comfortably with complete symptomatic resolution. Her laboratory studies show a minor leukocytosis of 13.8 but her electrolytes are normal, renal function is normal, LFTs are normal. Glucose normal. Urinalysis shows some ketones likely from nausea and dehydration. Patient was given fluid bolus. test negative. UDS positive for benzos and cannabinoids. Patient did wake up after resting and was complaining of akathisia and restlessness sensation likely from the Haldol. Patient provided diphenhydramine as well as Valium to treat this. Her nausea and vomiting are resolved and she can be safely discharged home with return precautions and PCP follow-up. Medical Records Attestation: I reviewed the patient's medical records. Lab Data Attestation: I reviewed the patient's lab results. 03/13/25 02:20 03/13/25 02:20 Labs: Lab Results 03/13/25 03/13/25 03/13/25 Range/Units 02:20 04:04 04:06 WBC 13.8 H (4.5-10.0) K/mm3 RBC 4.46 (4.2-5.4) M/mm3 Hgb 13.6 (12.0-15.0) g/dL Hct 41.9 (37.0-47.0) % MCV 93.9 (80-100) fl MCH 30.5 (26-34) pg MCHC 32.5 (32-36) g/dl RDW 12.0 (11.5-14.5) % Plt Count 208 (150-375) k/mm3 MPV 11.8 H (7.4-10.4) fl Immature Gran % (Auto) 0.4 (0-0.5) % Neut % (Auto) 80.6 H (45.5-73.1) % Lymph % (Auto) 12.4 L (18.3-44.2) % Payne % (Auto) 6.1 (2.6-8.5) % Eos % (Auto) 0.1 (0-4.4) % Baso % (Auto) 0.4 (0.2-1.2) % Lymph # (Auto) 1.71 (0.9-3.2) K/mm3 Payne # (Auto) 0.8 H (0.1-0.6) K/mm3 Eos # (Auto) 0.0 (0-0.3) K/mm3 Baso # (Auto) 0.1 (0.0-0.1) K/mm3 Abs Immat Gran (auto) 0.05 H (0.00-0.031) K/mm3 Absolute Neuts (auto) 11.1 H (1.3-6.7) K/mm3 Absolute Nucleated RBC 0.000 (0.0-0.012) K/mm3 Nucleated RBC % 0.0 (0.0-0.2) % Sodium 138 (137-145) mmol/L Potassium 3.6 (3.4-5.0) mmol/L Chloride 102 (98-107) mmol/L Carbon Dioxide 25 (22-30) mmol/L Anion Gap 11 (4-12) mmol/L BUN 15 (7-17) mg/dL Creatinine 0.60 L (0.7-1.0) mg/dL Estim Creat Clear Calc Not Reportable Estimated GFR > 60 (59 - ) Glucose 122 H (65-110) mg/dL Calcium 9.6 (8.4-10.2) mg/dL Total Bilirubin 1.3 (0.2-1.3) mg/dL AST 24 (14-36) U/L ALT 20 (6-35) U/L Alkaline Phosphatase 73 (38-126) U/L Total Protein 8.0 (6.3-8.2) g/dL Albumin 5.0 (3.5-5.1) g/dL Lipase 37 (23-300) U/L Urine Color Yellow (Yellow) Urine Appearance Cloudy H (Clear) Urine pH 6.0 (5.0-9.0) Ur Specific [place] 1.032 (1.001-1.035) Urine Protein 2+ H (Negative) mg/dL Urine Glucose (UA) Negative (Negative) mg/dL Urine Ketones 3+ H (Negative) mg/dL Ur Blood (Man) Negative (Negative) Urine Nitrate Negative (Negative) Urine Bilirubin Negative (Negative) Urine Urobilinogen 1.0 (<2.0) mg/dL Add Ur Microanalysis Reviewed Leukocyte Esterase Rfl Negative (Negative) JAZZ/UL Urine RBC 6-10 H (0-2) /hpf Urine WBC 0-5 (0-3) /hpf Ur Squamous Epith Cells Moderate (Few) /hpf Urine Bacteria 1+ H /hpf Urine Casts 3-5 Urine Mucus Present /lpf POC Urine HCG, Qual Negative (Negative) Urine Opiates Screen Negative (Negative) Urine Methadone Screen Negative (Negative) Ur Barbiturates Screen Negative (Negative) Ur Phencyclidine Scrn Negative (Negative) Ur Amphetamine Screen Negative (Negative) U Benzodiazepines Scrn Positive A (Negative) Urine Cocaine Screen Negative (Negative) U Cannabinoids Screen Positive A (Negative) Discharge Plan Discharge Clinical Impression: Nausea and vomiting, Cannabinoid hyperemesis syndrome, Abdominal pain Patient Disposition: Home Condition: Stable Instructions: Antibiotic Form, Acute Nausea and Vomiting (ED), Abdominal Pain (ED) Additional Instructions: Follow-up with your primary care provider. Refrain from any marijuana use as this can exacerbate nausea and hyperemesis. If you have any recurrence or worsening abdominal pain, inability to tolerate any oral intake, intractable fevers or any other concerns return to the emergency department otherwise follow-up with regular doctor. We will send you home with some Shelton for nausea at home. Patient Language: Citizen Of [place] Prescriptions: New ondansetron 4 mg tablet,disintegrating 4 mg PO Q8H PRN (Reason: nausea and vomiting) Qty: 10 0RF No Action amoxicillin-pot clavulanate 875-125 mg tablet 1 tablet PO Q12H 7 Days Qty: 14 0RF amitriptyline 25 mg Tablet 12.5 mg PO HS cephalexin 500 mg capsule 500 mg PO Q8H 5 Days Qty: 15 0RF Follow-up/Referrals: Luis Enrique,Navi Morris MD [Primary Care Provider] - Time of Disposition: 05:07
[2025-03-13 02:37] LABS: Alanine Aminotransferase 20 U/L (6-35); Alkaline Phosphatase 73 U/L (38-126); Anion Gap 11 mmol/L (4-12); Aspartate Amino Transferase 24 U/L (14-36); Bilirubin,Total 1.3 mg/dL (0.2-1.3); Blood Urea Nitrogen 15 mg/dL (7-17); Calcium 9.6 mg/dL (8.4-10.2); Carbon Dioxide 25 mmol/L (22-30); Chloride 102 mmol/L (98-107); Estimated Glomerular Filt Rate > 60; Glucose 122 mg/dL (65-110); Lipase 37 U/L (23-300); Potassium 3.6 mmol/L (3.4-5.0); Sodium 138 mmol/L (137-145)
[2025-03-13] MEDS: diphenhydrAMINE HCl INJ 50 MG/ML VIAL IV PUSH (02:40)
[2025-03-13] MEDS: LACTATED RINGERS 1,000 ML 999 ML IV CONT (02:42)
[2025-03-13 02:44] VITALS: BP 149/93; PULSE 98; RESP 17; TEMP 37.2; O2SAT 99
--- OUTSIDE RECORDS SUMMARY | 2025-03-13 02:47 | XMS_ITS | Encounter Summary ---
Author Organization [facility] Healthcare Address [address] [place] [address] Care Team Providers Care Draw Tender Name Role Phone Navi Dudley MD Primary Care Provider [phone] Reason for Visit * Reason Onset Date Comments ready to scheduled 02/27/2023 Encounter Details Date Type Department Care Team ([facility] Contact Info) Description 02/27/[address] 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
--- OUTSIDE RECORDS SUMMARY | 2025-03-13 02:47 | XMS_ITS | Clinical Summary ---
Author Organization [facility] Address [address] [place] [address] Care Team Providers Care Channel Marketing Coordinator Name Role Phone Navi Dudley MD Primary Care Provider [phone] Allergies Active Allergy Reactions Criticality Noted Date [...] CDT - 03/12/2025 9:51 PM CDT Emergency [facility] Emergency Department [address] [place] [id number] Discharge Disposition: Left without being seen 02/26/2025 Orders Only [facility] Healthcare Occupatiuonal Health [address] [facility] Room [address] (Third Floor) [place] [id number] Lorenzo Marshall MD Pre-employment health screening examination [...] on file 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 Gender Identity Not on file Sexual Orientation [...] LAB BLOOD ORDERABLES Final Res ult [facility] [address] [facility] Department [place] [address] * (ABNORMAL) CBC with auto differential (03/12/2025 7:08 PM CDT) WBC 11.45(H) 3.80 - 9.90 K/cumm Hgb 14.0 11.9 - 15.5 g/dL [facility] ([facility]) Hct 41.9 35.6 - 45.5 % [facility]) Plt 212 150 - 400 K/cumm [facility]) MPV 11.7 9.1 - 12.3 fL [facility] ([place]) RBC 4.55 3.90 - 5.20 M/cumm [facility] [...] MD LAB BLOOD ORDERABLES Final Res ult [facility] ([facility]) 1 [facility] Department [place] [address] * (ABNORMAL) Manual Differential (03/12/2025 7:08 PM [...] BLOOD ORDERABLES Final Res ult [facility] ([place]) 1 [facility] [employer] [place] [address] * Lipase (03/12/2025 7:08 PM CDT) Lipase 17 10 - 99 Units/L Blood Venous blood specimen / Unknown 03/12/2025 7:08 PM CDT 03/12/2025 7:13 PM CDT Compa Morrissey MD LAB BLOOD ORDERABLES Final Res ult [facility] ([place]) 1 [facility] [place] [address] * (ABNORMAL) Comprehensive metabolic panel (03/12/2025 7:08 [...] Final Res ult [facility] ([facility]) 1 [facility] Department [place] [address] from Last 3 Months Insurance [place] [address] [facility] [place] [address] Care Teams Channel Marketing Coordinator Relationship Specialty Start Date End Date Navi Dudley MD [address] [place] [address] PCP - General Internal Medicine 05/02/22
--- OUTSIDE RECORDS SUMMARY | 2025-03-13 02:47 | XMS_ITS | Encounter Summary ---
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 Gender Identity Not on file Sexual [...] Scheduled Orders Name Type Priority Associated Diagnoses Orde r Schedule Urinalysis reflex to microscopic and culture [...] Final Res ult [facility] ([facility]) 1 [facility] Department of Laboratories [place], [place] [id number] * eGFR (03/12/2025 7:08 PM CDT) eGFR [...] LAB BLOOD ORDERABLES Final Res ult [facility] 1 [facility] [email or web address] [address] * Lipase (03/12/2025 7:08 PM CDT) Lipase 17 10 - 99 Units/L Blood Venous blood specimen / Unknown 03/12/2025 7:08 PM CDT 03/12/2025 7:13 PM CDT Compa Morrissey MD LAB BLOOD ORDERABLES Final Res ult [facility] ([place] 1 [facility] [employer] [place] [address] * (ABNORMAL) Comprehensive metabolic panel (03/12/2025 7:08 PM CDT) Sodium 135 135 - 145 mmol/L Potassium, pl 3.7 3.3 - 4.9 mmol/L [facility] ([facility]) Chloride 99 97 - 110 mmol/L [...] classification and Diagnosis of Diabetes Diabetes Care 202; 46: S19-S40. Current interpretive data was last [...] Final Res ult [facility] ([facility]) 1 [facility] Department [place] [address] * (ABNORMAL) CBC with auto differential (03/12/2025 [...] MD LAB BLOOD ORDERABLES Final Res ult [facility] ([facility]) 1 [facility] Department [place] [address] documented in this encounter Visit Diagnoses Not on filedocumented in this encounter Care Teams Crank Hand Relationship Specialty Start Date End Date Navi Dudley MD [address] [place] [address] PCP - General Internal Medicine 05/02/22 documented as of this encounter
--- OUTSIDE RECORDS SUMMARY | 2025-03-13 02:47 | XMS_ITS | Referral Summary ---
Author Organization [facility] Address [address] [place] [address] Care Team Providers Care Processor Grain Name Role Phone Navi Dudley MD Primary Care Provider [phone] Encounters Date Type Department Care Team Description 03/12/2025 6:56 PM CDT - 03/12/2025 9:51 PM CDT Emergency [facility] Emergency Department [address] [place] [address] Discharge Disposition: Left without being seen 02/26/[address] 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 Gender Identity Not on file Sexual Orientation [...] Final Res ult [facility] ([facility]) 1 [facility] Department [place] [address] * (ABNORMAL) CBC with auto differential (03/12/2025 [...] Final Res ult [facility] ([facility]) 1 [facility] Department [place] [address] * (ABNORMAL) Manual Differential (03/12/2025 7:08 PM [...] Final Res ult [facility] ([facility]) 1 [facility] [place] [address] * Lipase (03/12/2025 7:08 PM CDT) Lipase 17 10 - 99 Units/L Blood Venous blood specimen / Unknown 03/12/2025 7:08 PM CDT 03/12/2025 7:13 PM CDT Compa Morrissey MD LAB BLOOD ORDERABLES Final Res ult Performing Organization Address City/[facility]/ZIP Co de Phone Number [facility] ([facility]) 1 [facility] [place] [address] * (ABNORMAL) Comprehensive metabolic panel (03/12/2025 7:08 [...] Final Res ult [facility] ([facility]) 1 [facility] Department [place] [address] from Last 3 Months Insurance [facility] Member Subscriber Plan / Payer ( fective 2019-Present) Name:Leonila Solis Relation to Subscriber:Self Name:Leonila Solis Payer ID:[id number] Group ID:Not on file Type:OTHER [employer] Address: [facility] [address] [place] [phone] Care Teams Processor Grain Relationship Specialty Start Date End Date Navi Dudley MD [address] [place] [address] PCP - General Internal Medicine 05/02/22
--- OUTSIDE RECORDS SUMMARY | 2025-03-13 02:48 | XMS_ITS | Clinical Summary ---
Author Organization [facility] Address [address] [facility] [place] [address] Care Team Providers Care Business Records Manager Name Role Phone Navi Dudley MD Primary Care Provider [phone] Source Comments [facility],non-owned Affiliates and Associated Physician Practices is amultiple site organization consisting of ambulatory clinics and hospital sitesin [place], [place], [place] and [place]. This disclosure is being madepursuant to the Care Everywhere program and may not contain all information available regarding this patient. Last updated 18.[facility] Allergies Active Allergy Reactions Criticality Noted Date [...] times daily. 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 Gender Identity Not on file Sexual Orientation Not on file Last Filed Vital Signs Vital Sign Reading Time Taken Comments Blood Pressure 129/84 11/10/2014 8:40 AM SILK SCREEN ETCHER Pulse 68 11/10/2014 8:40 AM SILK SCREEN ETCHER Temperature 36.8 C (98.3 F) 11/10/2014 8:40 AM SILK SCREEN ETCHER Respiratory Rate 15 11/10/2014 8:40 AM SILK SCREEN ETCHER Oxygen Saturation - - Inhaled Oxygen Concentration - - Weight 78.9 kg (174 lb) 11/08/2014 11:06 AM SILK SCREEN ETCHER Height 154.9 cm (5' 1 ) 11/08/2014 11:06 AM SILK SCREEN ETCHER Body Mass Index 32.88 11/08/2014 11:06 AM SILK SCREEN ETCHER Plan of Treatment Health Maintenance Due Date [...] 2:55 PM 11/08/2014 3:34 PM Care Teams Business Records Manager Relationship Specialty Start Date End Date Navi Dudley MD PCP - General Internal Medicine 11/19/14
[2025-03-13 04:08] LABS: BEDSIDEPREGUCG Negative (Negative)
[2025-03-13 04:32] LABS: Add Urine Microscopic? YES; Appearance Urine Cloudy (Clear); Bacteria Urine 1+ /hpf; Bilirubin Urine Negative (Negative); Blood Urine Negative (Negative); Color Urine Yellow (Yellow); Glucose Urine UA Negative (Negative); Ketones Urine 3+ mg/dL (Negative); Leukocyte Esterase Ur Negative LEU/UL (Negative); Mucus Urine Present /lpf; Need Manual Microscopic Reviewed; Nitrate Urine Negative (Negative); Protein Urine 2+ mg/dL (Negative); Specific Grav Ur 1.032 (1.001-1.035); Squamous Epithelial Cell Urine Moderate /hpf (Few); WBC Urine 0-5 /hpf (0-3)
[2025-03-13 04:43] LABS: Amphetamine Screen Urine Negative (Negative); Barbiturate Screen Urine Negative (Negative); Benzodiazepines Screen Urine Positive (Negative); Cannabinoid Screen Urine Positive (Negative); Cocaine Screen Urine Negative (Negative); Methadone Screen Urine Negative (Negative); Opiate Screen Urine Negative (Negative); Phencyclidine Screen Urine Negative (Negative)
[2025-03-13] MEDS: diazePAM INJ (*CRX) 10 MG/2 ML SYRINGE 2.5 MG IV PUSH (05:00)
[2025-03-13 05:54] VITALS: BP 113/75; PULSE 76; RESP 15; O2SAT 99
== END 2025-03-13 06:31 | disposition home or self-care (01) ==
PROVIDERS: Physician Assistant; Emergency Provider Student in an Organized Health Care Education/Training Program; PCP Internal Medicine
DX: R11.2 Nausea with vomiting, unspecified (principal); F12.90 Cannabis use, unspecified, uncomplicated; M32.9 Systemic lupus erythematosus, unspecified; R10.9 Unspecified abdominal pain
CPT/HCPCS: 36415; 80053; 80307; 81001; 81025; 83690; 85025; 96361; 96374; 96375; 99284; J1200; J1630; J3360; J7120